=== PATIENT | female | born 1930 | race Caucasian/White ===

== ENCOUNTER 2017-03-17 11:29 | Observation (INO) | payer OTHER ==
[~2017-03-17] VITALS: Ht 154.9 cm; Wt 67.3 kg
[2017-03-17 00:05] VITALS: PULSE 57
[~2017-03-17 11:29] MED LIST: AMLO5TAB2 PO; ASPI-516 CHEW; FISHCAP4 PO; GING500C2; GLUC500C5 PO; LOSA25TA PO; METO1TAB42 PO; NEXI20CA PO; OXYB5TAB8 PO; SIME180C; TURM500C3 PO
[2017-03-17 14:23] VITALS: BP 142/65; PULSE 60; RESP 18; TEMP 98; O2SAT 97
[2017-03-17] MEDS ORDERED: ACETAMINOPHEN 500 MG CPLT PO PRN (15:45)
[2017-03-17] MEDS ORDERED: SODIUM CHLORIDE 0.9% FLUSH 5 ML FLUSH IVF PRN (15:45)
[2017-03-17] MEDS ORDERED: RESP: ALBUTEROL 2.5 MG/IPRATROPIUM 0.5 MG NEB (PRN) INH (15:45)
[2017-03-17] MEDS ORDERED: ACETAMINOPHEN/HYDROcodone 325 MG/7.5 MG TAB PO PRN (15:45)
[2017-03-17] MEDS ORDERED: cloNIDine HCL 0.1 MG TAB PO PRN (15:45)
[2017-03-17] MEDS ORDERED: ONDANSETRON HCL 4 MG/2 ML VIAL IV PUSH PRN (15:45)
--- NOTE | 2017-03-17 15:54 | HHI.HP ---
[facility] Primary Care Physician Jim Hawkins MD Chief Complaint Chest pain History of Present Illness This is an 86-year-old female that presents to the ED in [place] for evaluation of chest discomfort and with subsequently transported to chest pain center to further evaluate her chest discomfort which she described as a warmth sensation. She states that she is awoken early this morning and did not feel right. She states that she felt weird. She checked her blood pressure found to be in the 170s. She states that this is unusual for her. She takes 3 medications for hypertension and states that her blood pressures usually fine. She also states that she developed a discomfort across her chest about the same time with shortness of breath. She then states she has been short of breath for quite some time. This can occur also which is slightly walking. She saw a air conditioner installer helper in the land and had a stress test and 2-D echo 3 weeks ago but she does not know the results results. Review of Systems General: Patient denies fevers, chills recent, and recent travel HEENT: Patient denies headache, sore throat, difficulty swallowing. Cardiovascular: Has the chest discomfort as mentioned above. Denies sensation of heart beating rapidly or irregularly. No syncope. Denies diaphoresis. Respiratory: She has been short of breath. Denies inspirational chest discomfort. Denies coughing wheezing or hemoptysis. GI: Patient denies nausea, vomiting, diarrhea, abdominal pain, bloody stools. Musculoskeletal: Patient denies joint pain or edema. Denies calf pain or edema. Neurovascular: Patient denies numbness, tingling, weakness in extremities. Denies headache. Endocrine: Denies polyuria and polydipsia. Hematologic: Denies easy bruising. Skin: Denies rash or itching. Past Family Social History Allergies: Coded Allergies: No Known Allergies (Unverified Adverse Reaction, Unknown, 03/17/17) Past Medical History Hypertension, hyperlipidemia, GERD, left renal artery stent a few years ago. Denies diabetes and known CAD. Past Surgical History Left renal stent. Hysterectomy. Reported Medications Reported Meds & Active Scripts Active Reported Turmeric (Turmeric (Curcuma Longa)) 450 Mg-50 Mg Cap 1 Tab PO BID Glucosamine (Glucosamine Sulfate) 500 Mg Cap 500 Mg PO BID Gas Relief (Simethicone) 180 Mg Cap Nexium (Esomeprazole DR) 20 Mg Capdr 20 Mg PO DAILY Fish Oil + D3 (Fish Oil-Cholecalciferol) 1,200-1,000 Mg-Unit Cap 1 Cap PO DAILY Aspirin 81 Mg Chew 81 Mg CHEW DAILY Ditropan (Oxybutynin Chloride) 5 Mg Tab 5 Mg PO Q12HR Losartan (Losartan Potassium) 25 Mg Tab 12.5 Mg PO DAILY Amlodipine (Amlodipine Besylate) 5 Mg Tab 5 Mg PO DAILY Metoprolol Succinate ER 24 HR (Metoprolol Succinate) 25 Mg Tab 25 Mg PO DAILY Family History Denies family history of CAD. Social History Nonsmoker. Denies alcohol or illicit drugs. Physical Exam Vital Signs Vital Signs Date Time Temp Pulse Resp B/P (MAP) Pulse Ox O2 Delivery O2 Flow Rate FiO2 03/17/17 14:23 98.0 60 18 142/65 (90) 97 Physical Exam GENERAL: This is a well-nourished, well-developed patient, in no apparent distress. Patient speaks in clear complete sentences. Patient is pleasant. HEENT: Head is atraumatic and normocephalic. Neck is supple without lymphadenopathy and trachea is midline. No JVD or carotid bruits. CARDIOVASCULAR: Grade 3 systolic murmur left sternal border likely mitral regurgitation and a grade 2 diastolic murmur along the sternum likely representing aortic regurgitation. Regular rate and rhythm without gallops, or rubs. RESPIRATORY: Clear to auscultation. Breath sounds equal bilaterally. No wheezes , rales, or rhonchi. Chest wall is nontender. No use of accessory muscles. GASTROINTESTINAL: Abdomen is nontender, nondistended. Abdomen soft. No obvious pulsatile mass or bruit. No CVA tenderness. Strong femoral pulses bilaterally. Normal bowel sounds in all quadrants. MUSCULOSKELETAL: Patient is moving upper and lower extremities freely. No calf tenderness or edema, no Homans sign. Strong pulses in upper and lower extremities. NEUROLOGICAL: Patient is alert and oriented. Cranial nerves 2-12 are grossly intact. No focal deficits and speech is clear. SKIN: No rash and turgor is normal. Imaging Chest x-ray read by radiologist as cardiomegaly. No acute findings. Course EKG is a sinus rhythm sinus bradycardia without significant ST segment depressions or elevations. There are PACs present. Caprini VTE Risk Assessment Caprini VTE Risk Assessment: Mod/High Risk (score >= 2) Caprini Risk Assessment Model Point Value = 1 Point Value = 2 Point Value = 3 Point Value = 5 Age 41-60 Minor surgery BMI > 25 kg/m2 Swollen legs Varicose veins or History of unexplained or recurrent spontaneous Oral contraceptives or hormone replacement Sepsis (< 1 month) Serious lung disease, including pneumonia (< 1 month) Abnormal pulmonary function Acute myocardial infarction Congestive heart failure (< 1 month) History of inflammatory bowel disease Medical patient at bed rest Age 61-74 Arthroscopic surgery Major open surgery (> 45 min) Laparoscopic surgery (> 45 min) Malignancy Confined to bed (> 72 hours) Immobilizing plaster cast Central venous access Age >= 75 History of VTE Family history of VTE Factor V Leiden Prothrombin [id number] Lupus anticoagulant Anticardiolipin antibodies Elevated serum homocysteine Heparin-induced thrombocytopenia Other congenital or acquired thrombophilia Stroke (< 1 month) Elective arthroplasty Hip, pelvis, or leg fracture Acute spinal cord injury (< 1 month) Prophylaxis Regimen Total Risk Factor Score Risk Level Prophylaxis Regimen 0-1 Low Early ambulation 2 Moderate Order ONE of the following: *Sequential Compression Device (SCD) *Heparin 5000 units SQ BID 3-4 Higher Order ONE of the following medications: *Heparin 5000 units SQ TID *Enoxaparin/Lovenox 40 mg SQ daily (WT < 150 kg, CrCl > 30 mL/min) *Enoxaparin/Lovenox 30 mg SQ daily (WT < 150 kg, CrCl > 10-29 mL/min) *Enoxaparin/Lovenox 30 mg SQ BID (WT < 150 kg, CrCl > 30 mL/min) AND/OR *Sequential Compression Device (SCD) 5 or more Highest Order ONE of the following medications: *Heparin 5000 units SQ TID (Preferred with Epidurals) *Enoxaparin/Lovenox 40 mg SQ daily (WT < 150 kg, CrCl > 30 mL/min) *Enoxaparin/Lovenox 30 mg SQ daily (WT < 150 kg, CrCl > 10-29 mL/min) *Enoxaparin/Lovenox 30 mg SQ BID (WT < 150 kg, CrCl > 30 mL/min) AND *Sequential Compression Device (SCD) Assessment and Plan Assessment and Plan * Chest pain: Patient's symptoms are atypical. She will continue to have serial cardiac enzymes and EKGs for ruling out purposes. She was seen by Dr. Salinas of cardiology in the chest pain center. Patient states she recently had a stress test and 2-D echo and is awaiting the results from her air conditioner installer helper. Patient will spend the evening in the chest pain center and likely be discharged in the morning if she rules out and is feeling okay with instructions to follow-up with her air conditioner installer helper and return to ED for interval issues. * Hypertension: Patient will continue medications. Will continue to monitor. * Hyperlipidemia: Continue current medication. * GERD: Continue current medication. Patient is stable at this time. She is agreeable to this plan. Valente Enriquez Mar 17, 2017 15:54
[2017-03-17 16:43] LABS: CREATINE KINASE 106 U/L (26-192)
[2017-03-17 16:56] LABS: CKMB 1.7 NG/ML (0.5-3.6)
[2017-03-17] MEDS: PANTOPRAZOLE SOD 20 MG DELAYED RELEASE TAB PO SCH (18:08)
[2017-03-17 20:12] VITALS: O2SAT 96
[2017-03-17 20:53] VITALS: BP 127/58; PULSE 60; RESP 18; TEMP 98.4; O2SAT 93
[2017-03-17] MEDS: SODIUM CHLORIDE 0.9% FLUSH 5 ML FLUSH IVF SCH (21:00)
[2017-03-17] MEDS ORDERED: TURMERIC PO SCH (21:00)
[2017-03-17] MEDS ORDERED: NON-FORMULARY DRUG (Glucosamine 500 MG) PO SCH (21:00)
[2017-03-17] MEDS: OXYBUTYNIN CHLORIDE 5 MG TAB PO SCH (21:10)
[2017-03-17 23:55] VITALS: PULSE 50
[2017-03-17 23:59] VITALS: BP 147/75; PULSE 78; RESP 18; TEMP 98.8; O2SAT 97
[2017-03-18 03:56] VITALS: BP 120/64; PULSE 58; RESP 18; TEMP 98.1; O2SAT 97
--- NOTE | 2017-03-18 07:56 | HHI.DCPOC ---
Discharge Care Plan Diagnosis: (1) Chest pain (2) Hypertension Goals to Promote Your Health * To prevent worsening of your condition and complications * To maintain your health at the optimal level Directions to Meet Your Goals Take your medications as prescribed Follow your dietary instruction Follow activity as directed Keep your appointments as scheduled Take your immunizations and boosters as scheduled If your symptoms worsen call your PCP, if no PCP go to Urgent Care Center or Emergency Room Smoking is Dangerous to Your Health. Avoid second hand smoke Call the 24-hour hour crisis hotline for domestic abuse at Valente Enriquez Mar 18, 2017 07:56
[2017-03-18 08:00] VITALS: BP 159/67; PULSE 56; RESP 18; TEMP 97.5; O2SAT 93
[2017-03-18 08:29] VITALS: PULSE 71
[2017-03-18 08:53] VITALS: O2SAT 93
[2017-03-18] MEDS ORDERED: ASPIRIN 325 MG TAB PO SCH (09:00)
[2017-03-18] MEDS ORDERED: METOPROLOL SUCCINATE 25 MG EXTENDED RELEASE TAB PO SCH (09:00)
[2017-03-18] MEDS: SODIUM CHLORIDE 0.9% FLUSH 5 ML FLUSH IVF SCH (09:00)
[2017-03-18] MEDS ORDERED: LOSARTAN 25 MG TAB PO SCH (09:00)
[2017-03-18] MEDS ORDERED: amLODIPine BESYLATE 5 MG TAB PO SCH (09:00)
[2017-03-18] MEDS: OXYBUTYNIN CHLORIDE 5 MG TAB PO SCH (09:27)
[2017-03-18] MEDS: PANTOPRAZOLE SOD 20 MG DELAYED RELEASE TAB PO SCH (09:27)
--- NOTE | 2017-03-18 11:09 | EKG ---
Date Performed: 03/17/2017 Time Performed: 18:20:32 PTAGE: 86 years EKG: SINUS BRADYCARDIA WITH OCCASIONAL SUPRAVENTRICULAR PREMATURE COMPLEXES BORDERLINE ECG NO PREVIOUS TRACING DOCTOR: Josue Salinas Interpretating Date/Time 03/18/2017 11:07:01
== END 2017-03-18 11:52 | disposition home or self-care (01) ==
LOC: NEDDLT 14:00 → NEPHCDU 14:16
DX: R07.89 Other chest pain (principal); R06.02 Shortness of breath; R00.1 Bradycardia, unspecified; I10 Essential (primary) hypertension; E78.5 Hyperlipidemia, unspecified; K21.9 Gastro-esophageal reflux disease without esophagitis; Z79.899 Other long term (current) drug therapy
CPT/HCPCS: 71010; 80053; 82550; 82552; 84484; 85025; 85610; 85730; 93005; 99285; G0378; 99281

== ENCOUNTER 2018-04-26 04:21 | Observation (INO) ==
[2018-04-26] MEDS ORDERED: Heparin 10,000 UNITS/10 ML Vial (for IV use) IV.PUSH STA (10:11)
[2018-04-26] MEDS ORDERED: Heparin Drip 25,000 UNIT/250 ML BAG IV.CONT PRN (10:11)
--- NOTE | 2018-04-26 11:07 | P.HP ---
History of Present Illness Primary Care Physician: Jim Hawkins History of Present Illness: 87-year-old white female being admitted for A. fib with RVR. Patient was in her usual state of health until sometime yesterday late morning she had some self-limited nausea vomiting and diarrhea. Later that night around 3 AM she woke up with a sense of palpitations, with a sensation of something beating out of her chest. Denies having any nausea, vomiting, chest pain or shortness of breath associated with the episode. She says she measured her blood pressure at home, does not remember the numbers but says it was "high. " She took 2 doses of baby aspirin, and with no relief of symptoms she decided to proceed to the emergency department and [place]. In the ED she was found to be in A. fib with RVR and was about to be started on Cardizem drip but her pulse had spontaneously come down to around 93. Blood work initially showed a negative troponin with mild hypokalemia at 3.1 chest x- ray was obtained which I independently reviewed which was negative for any acute findings. EKG per my independent review shows A. fib with RVR and then the repeat EKG shows sinus rhythm with some PACs. Troponin trended up to 0.09 on repeat. BNP minimally up at 243. Pt says she sees Dr. Benjamin from cardiology. Review of Systems All other systems reviewed negative except as stated in HPI PMFSH - History History Provided By: Patient - Medical History Medical History: Medical History (Last Updated 04/26/18 @ 11:03 by Cain Hoyos MD) History of stent insertion of renal artery (Acute) Afib Aneurysm Arthritis GERD (gastroesophageal reflux disease) HTN (hypertension) Thyroid disease - Family History Family History: Family History (Last Updated 04/26/18 @ 11:03 by Cain Hoyos MD) Other Heart disease - Tobacco History Second Hand Smoke Exposure: Yes Tobacco Use In Past 30 Days: No Smoking Status: Former smoker Tobacco Type: Cigarettes - Alcohol History How Often Do You Have a Drink Containing Alcohol: Never - Substance Use History Substance History: No History of Abuse - Travel History Recent Travel in the [place] Within the Last 8 Weeks: No Recent Travel Out of the Country Within the Last 8 Weeks: No Medications and Allergies Active Medications: Active Medications Heparin Sodium/Dextrose (Heparin/D5w 25,000 U/250 Ml) 25,000 unit in 250 mls @ 8.437 mls/hr IV.CONT TITRATE PRN; Protocol PRN Reason: Per Protocol Sodium Chloride (Ns Flush) 2 ml IV.FLUSH BID LIGIA Last Admin: 04/26/18 09:51 Dose: 2 ml Sodium Chloride (Ns Flush) 2 ml IV.FLUSH UNSCH PRN PRN Reason: FLUSH AFTER USING IV ACCESS Allergies Allergy/AdvReac Type Severity Reaction Status Date / Time No Known Allergies Allergy Verified 04/26/18 04:30 Home Medications Medication Instructions Recorded Confirmed Type albuterol sulfate [Ventolin HFA] 1 puff INHALATION Q4-6H PRN 04/26/18 04/26/18 History amlodipine 5 mg PO DAILY 04/26/18 04/26/18 History aspirin 81 mg PO DAILY 04/26/18 04/26/18 History atorvastatin 10 mg PO QPM 04/26/18 04/26/18 History cyanocobalamin-cobamamide [B12] 1,000 mg DAILY 04/26/18 04/26/18 History glucosamine sulfate [Glucosamine] 500 mg PO BID 04/26/18 04/26/18 History losartan 25 mg PO DAILY 04/26/18 04/26/18 History metoprolol succinate 25 mg PO DAILY 04/26/18 04/26/18 History omega 5-[id number]-[id number]-fish oil [Fish Oil] 1,000 mg PO DAILY 04/26/18 04/26/18 History oxybutynin chloride 5 mg PO TID 04/26/18 04/26/18 History pantoprazole 40 mg PO DAILY 04/26/18 04/26/18 History Exam Vital signs: Intake & Output 04/25/18 04/26/18 04/26/18 18:59 06:59 18:59 Weight 70.307 kg Other: Weight On Admission 70.307 kg Narrative: VS: afebrile GENERAL: Elderly well-nourished female, awake, no acute distress SKIN: Warm and dry. EYES: No scleral icterus. No injection or drainage. ENT: No nasal bleeding or discharge. Mucous membranes pink and moist. CARDIOVASCULAR: Heart sounds are regular rate and rhythm, no murmurs RESPIRATORY: No accessory muscle use. Clear to auscultation. Breath sounds equal bilaterally. GASTROINTESTINAL: Abdomen soft, non-tender, nondistended. Extremities: No clubbing, cyanosis, or edema. No obvious deformities. MUSCULOSKELETAL: adequate muscle bulk and tone for age and habitus NEUROLOGICAL: Awake and alert. No obvious cranial nerve deficits. No facial droop nor slurred speech noted. PSYCHIATRIC: Appropriate mood and affect; insight and judgment normal. Caprini VTE Risk Assessment Caprini VTE Risk Assessment: Moderate/High Risk (score >= 2) Caprini Risk Assessment Model: Point Value = 1 Point Value = 2 Point Value = 3 Point Value = 5 Age 41-60 Minor surgery BMI > 25 kg/m2 Swollen legs Varicose veins or History of unexplained or recurrent spontaneous Oral contraceptives or hormone replacement Sepsis (< 1 month) Serious lung disease, including pneumonia (< 1 month) Abnormal pulmonary function Acute myocardial infarction Congestive heart failure (< 1 month) History of inflammatory bowel disease Medical patient at bed rest Age 61-74 Arthroscopic surgery Major open surgery (> 45 min) Laparoscopic surgery (> 45 min) Malignancy Confined to bed (> 72 hours) Immobilizing plaster cast Central venous access Age >= 75 History of VTE Family history of VTE Factor V Leiden Prothrombin [id number] Lupus anticoagulant Anticardiolipin antibodies Elevated serum homocysteine Heparin-induced thrombocytopenia Other congenital or acquired thrombophilia Stroke (< 1 month) Elective arthroplasty Hip, pelvis, or leg fracture Acute spinal cord injury (< 1 month) Prophylaxis Regimen: Total Risk Factor Score Risk Level Prophylaxis Regimen 0-1 Low Early ambulation 2 Moderate Order ONE of the following: *Sequential Compression Device (SCD) *Heparin 5000 units SQ BID 3-4 Higher Order ONE of the following medications: *Heparin 5000 units SQ TID *Enoxaparin/Lovenox 40 mg SQ daily (WT < 150 kg, CrCl > 30 mL/min) *Enoxaparin/Lovenox 30 mg SQ daily (WT < 150 kg, CrCl > 10-29 mL/min) *Enoxaparin/Lovenox 30 mg SQ BID (WT < 150 kg, CrCl > 30 mL/min) AND/OR *Sequential Compression Device (SCD) 5 or more Highest Order ONE of the following medications: *Heparin 5000 units SQ TID (Preferred with Epidurals) *Enoxaparin/Lovenox 40 mg SQ daily (WT < 150 kg, CrCl > 30 mL/min) *Enoxaparin/Lovenox 30 mg SQ daily (WT < 150 kg, CrCl > 10-29 mL/min) *Enoxaparin/Lovenox 30 mg SQ BID (WT < 150 kg, CrCl > 30 mL/min) AND *Sequential Compression Device (SCD) Assessment and Plan - Plan 87-year-old white female being admitted for A. fib with RVR A. fib with RVR Now in sinus rhythm -Continue home metoprolol for now -We will need anticoagulation given elevated CHADSVASC. -no need for diltiazem drip at this time Mild elevated troponin - likely secondary to A. fib with RVR, no clinical signs of ACS -Called patient's scribing machine operator, given her risk factors recommended having cardiology see the patient - aspirin, lipitor mild hypokalemia -replaced, check Mg Hx of thoracic aortic aneurysm - being managed conservatively by CTS (Dr. Mitchell) heparin subq for now until cardiology determines need for ischemic workup, otherwise pt needs NOAC upon discharge
[2018-04-26] MEDS ORDERED: Non-Formulary Drug (Glucosamine Sulfate [Glucosamine] 500 MG) PO SCH (11:15)
[2018-04-26] MEDS: Sod Chloride 0.9% Inj 1,000 ML IV.CONT SCH (13:31)
[2018-04-26] MEDS: Heparin - SQ 10,000 UNITS/ML Vial SQ SCH ×2 (13:34→21:19)
--- NOTE | 2018-04-27 03:46 | MB ---
cc: James Guillaume DO DATE: 04/26/2018 REASON FOR CONSULTATION: Atrial fibrillation with rapid ventricular response, elevated troponin. HISTORY OF PRESENT ILLNESS: Anitha Driver is a pleasant 87-year-old female who sees my partner, Dr. Oziel Gramajo, in the office and presented to [facility] due to palpitations. She was in her usual state of health until the day before admission when she started having nausea, vomiting, and diarrhea. Apparently, her grandchild is sick with a similar type illness. She went to bed and later that night, around 3 a.m., she woke up with her heart beating irregular in her chest. She has had no other previous episodes of palpitations like this in the past. She denies chest pain or shortness of breath. She took her blood pressure and remembers it was high, but is unsure of the numbers. She took 2 baby aspirins with no relief of symptoms and so she came to the emergency room in [place]. In the emergency room, she was found to have atrial fibrillation with rapid ventricular response and started on a Cardizem drip. During her workup, she was found to have a troponin of 0.17 and I was asked to see her due to the atrial fibrillation as well as the elevated troponin. PAST MEDICAL HISTORY: 1. Thoracic aortic aneurysm being treated conservatively due to comorbidities. 2. Coronary artery disease. 3. Gastroesophageal reflux disease. 4. Hypertension. 5. Hyperlipidemia. 6. Renal artery stenosis. 7. History of TIA. PAST SURGICAL HISTORY: 1. Bilateral cataract extraction. 2. Previous PCI of unknown coronary. 3. Stripping of varicose great saphenous vein. 4. 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 ALLERGIES: NO KNOWN DRUG ALLERGIES. MEDICATIONS: 1. Aspirin 81 mg daily. 2. Toprol-XL 25 mg daily. 3. Losartan 25 mg daily. 4. Albuterol every 4-6 hours as needed. 5. Fish oil 1000 mg daily. 6. Lipitor 10 mg every night. 7. Protonix 40 mg daily. 8. Oxybutynin 5 mg t.i.d. 9. Norvasc 5 mg daily. FAMILY HISTORY: Denies sudden cardiac within the family. SOCIAL HISTORY: The patient is a former smoker. Denies tobacco or alcohol abuse. REVIEW OF SYSTEMS: Fourteen systems were reviewed including osteopathic. Pertinent positives and negatives above, otherwise negative. PHYSICAL EXAMINATION: VITAL SIGNS: Temperature 97.8, heart rate 85, blood pressure 143/67, respirations 16, pulse oximetry 94% on room air. GENERAL: The patient appears well, in no acute distress. Alert, awake and oriented x 3. HEENT: Extraocular muscles intact. Mucous membranes moist. NECK: Supple. No JVD at 45 degrees. No carotid bruits heard bilaterally. Carotid upstroke is brisk in nature. HEART: Irregularly irregular. Positive first and second heart sounds with no noted murmurs, gallops or rubs. LUNGS: Clear to auscultation bilaterally. No wheezes, rales or rhonchi. ABDOMEN: Soft, nontender, and nondistended. No organomegaly noted. EXTREMITIES: Show no clubbing, cyanosis or edema. Femoral and distal pulses intact bilaterally. NEUROLOGIC: No focal deficits. SKIN: Warm, dry and intact. OSTEOPATHIC: No kyphoscoliosis, lordosis or paraspinal tender points. LABORATORY DATA: Hemoglobin 14.2, hematocrit 43.0, platelets 410. Potassium 3.1, BUN 19, creatinine 1.1. Troponin 0.17. IMPRESSION: 1. New onset atrial fibrillation with rapid ventricular response, currently now in sinus rhythm. 2. Minimally elevated troponin. 3. History of thoracic aortic aneurysm, currently being treated conservatively. RECOMMENDATIONS: 1. Ms. Driver presented with new onset atrial fibrillation with rapid ventricular response, most likely due to her dehydration from diarrhea and emesis. 2. She most likely has a gastroenteritis as her grandchild has a similar type illness. 3. She is currently in sinus rhythm and we will keep her on her Toprol-XL to control her heart rates. 4. She currently has a CHADS-VASc score of 3, although there is a questionable history of TIA in the past, which would put her at a 5. Ultimately, she will need anticoagulation before discharge. 5. She does have a minimally elevated troponin and this is most likely due to dehydration as well as her atrial fibrillation with rapid ventricular response. She does have a history of coronary artery disease and because of this, I will recommend a stress test in the morning. 6. We will check a 2-D echo to look at her overall left ventricular function, cardiac structure and possible valvulopathies. 7. If stress test is negative, then she will be placed on an anticoagulant, most likely Eliquis or Xarelto, and plan for discharge for follow up with Dr. Oziel Gramajo. If stress test is positive, then she will require a cardiac catheterization. Thank you for allowing me to see Anitha Driver. If there are any questions, please do not hesitate to call. DO YAEL Trent/luz maria , 03:11 AM , 03:24 AM
[2018-04-27] MEDS: Heparin - SQ 10,000 UNITS/ML Vial SQ SCH ×2 (05:22→13:51)
--- NOTE | 2018-04-27 07:56 | P.PN ---
Subjective Interval history: Follow-up for A. fib with RVR, elevated troponins. The patient reports feeling much better today. She denies any further palpitations. Denies ever having any chest pain or shortness of breath. She is going for nuclear stress test today. She has no other medical complaints at this time including no headache, lightheadedness, dizziness, or abdominal complaints. Physical Exam Vital signs: Vital Signs 04/26/18 11:10 04/26/18 14:30 04/26/18 20:00 Temperature 97.8 F 98.3 F Pulse Rate 85 58 L 56 L Respiratory Rate 16 18 Blood Pressure 143/67 H 138/60 Pulse Oximetry 94 L 94 L 04/26/18 23:31 04/27/18 00:00 04/27/18 04:00 Temperature 98.0 F 98.7 F Pulse Rate 61 68 51 L Respiratory Rate 18 18 Blood Pressure 109/54 L 119/56 L Pulse Oximetry 93 L 93 L Intake & Output 04/26/18 04/27/18 04/27/18 18:59 06:59 18:59 Weight 70.307 kg Other: # Voids 1 Date of Last Bowel Movement 04/26/18 Weight On Admission 70.307 kg Narrative: GENERAL: Well-nourished, well-developed pleasant elderly female patient in [facility]. SKIN: Warm and dry. No rash. HEENT: Normocephalic. Atraumatic. Pupils equal and round. Mucous membranes pink and moist. CARDIOVASCULAR: Regular rate and rhythm. No murmur appreciated. RESPIRATORY: No accessory muscle use. Clear to auscultation. Breath sounds equal bilaterally. GASTROINTESTINAL: Abdomen soft, non-tender, nondistended. Normoactive bowel sounds x4. MUSCULOSKELETAL: No obvious deformities. Extremities without clubbing, cyanosis , or edema. NEUROLOGICAL: Awake and alert. No obvious cranial nerve deficits. Moving all extremities spontaneously. Normal speech. PSYCHIATRIC: Appropriate mood and affect; insight and judgment normal. Results - Labs Laboratory Results - last 24 hr 04/26/18 04/26/18 04/26/18 12:00 12:00 12:00 PT Cancelled INR Cancelled APTT Cancelled Magnesium 2.4 Troponin I 0.17 H Assessment and Plan - Plan 87-year-old female with history of A. fib, HTN, renal artery stent, arthritis, presents with palpitations, found to be in A. fib with RVR in the [facility] ED. Atrial fibrillation with RVR: Acute, presented to [facility] ER in A. fib with ventricular rate of 136 bpm, converted back to NSR spontaneously while in the ER prior to receiving IV Cardizem. -Patient remains in NSR with controlled rate -Monitor on telemetry -Continue home metoprolol -[id number] score at least a 3, possibly 5 with questionable history of stroke, anticoagulation recommended -Cardiology consulted, recommended Lexiscan/echo, and if negative, start on Eliquis Elevated Troponins: suspect secondary to afib with RVR, however rule out ACS -troponins trended 0.09, 0.17 -continue aspirin, statin, BB -Cardiology consulted, appreciate recommendations -Nuclear stress test ordered Hypertension/Hyperlipidemia: Chronic -continue home meds including norvasc, metoprolol, losartan, statin -monitor BP, adjust antihypertensives as needed All other chronic medical conditions stable, continue home medications as appropriate. DVT Prophylaxis: Heparin sq for now Discharge Planning: Await lexiscan and echocardiogram. 1700hrs: Echo with EF 65-70%, however moderately dilated proximal ascending aorta. Nuclear stress test mostly unremarkable per Dr. Guillaume, no further intervention planned. Discussed with Dr. Guillaume, cleared for discharge, recommended to start Eliquis 5mg bid, increase losartan to 50mg daily for better BP control, repeat BMP as outpatient in 1 week, and f/up as outpatient with cardiology. Discharge patient to home Condition on discharge: Stable Cardiac Diet as tolerated Ad Leona activity Rx written: Eliquis 5mg po bid, losartan 50mg po daily Follow-up with primary care physician and table hand Repeat BMP in 1 week
[2018-04-27] MEDS ORDERED: Aspirin 325 MG Tablet PO SCH (09:00)
[2018-04-27] MEDS ORDERED: Regadenoson Inj 0.4 MG/5 ML Syringe IV.PUSH ONE (12:12)
[2018-04-27] MEDS ORDERED: amLODIPine 5 MG Tablet PO SCH (13:00)
--- NOTE | 2018-04-27 13:42 | NM ---
EXAM DATE: 04/27/2018 1:27 PM EST AGE/SEX: 87 years / Female INDICATIONS:Atrial Fibrillation. Abnormal EKG CLINICAL DATA: This is the patient's initial encounter. Patient reports that signs and symptoms have been present for 1 day and indicates a pain score of 3/10. MEDICAL/SURGICAL HISTORY: Hypertension. Gastroesophageal reflux disease. Thyroid disease. . R enal stent placed. COMPARISON: No prior exams available for comparison. DOSE: 8.2 mCi Tc 99m Myoview at rest 26.4 mCi [id number] at stress 0.4 mg Lexiscan STRESS SYMPTOMS: None. EJECTION FRACTION: 47 % TECHNIQUE: The patient underwent pharmacologic stress with infusion of prescribed dose. Continuous ECG tracing was monitored during stress. Gated SPECT imaging was performed after stress and conventi onal SPECT imaging was performed at rest. The examination was performed on a SPECT/CT scanner, both attenuation and non-corrected datasets were reviewed. FINDINGS: Distribution: The maximum perfused segment at stress is in the distal wall. Perfusion Study: There is minimal decreased activity at the apical inferior wall on the stress imag es compared to the rest images. The difference is in the order of 20% which is borderline for mild is chemia. Gated Study: There are intact wall motion and wall thickening without hypokinetic or dyskinetic segm ents. The ejection fraction is calculated at 47%. The left ventricle appears dilated. RISK CATEGORY: Low (<1% Annual Motality Rate) CONCLUSION: 1. Possible small area of borderline ischemia at the apical portion of the inferior wall. 2. Left ventricular dilatation 3. Mild reduced ejection fraction of 47%. Electronically signed by: Cuate Lawson MD Board Certified Radiologist 04/27/2018 1:41 PM EST
--- NOTE | 2018-04-27 17:31 | ECHRPT ---
Indication: ATRIAL FIB/FLUTTER CONCLUSIONS The left ventricular systolic function is hyperdynamic with an estimated ejection fraction in the ra nge of 65- 70%. Moderately dilated proximal ascending aorta (4.5cm). Posterior mitral leaflet tanya without prolapse. Mild mitral valve regurgitation. Moderate aortic valve regurgitation. There is mild tricuspid valve regurgitation. There is estimated moderate pulmonary hypertension present (range 50-60 mmHg). BP: / HR: Rhythm: Sinus MEASUREMENTS (Male / Female) Normal Values Technical Quality:Fair 2D ECHO LV Diastolic Diameter PLAX 5.0 cm 4.2 - 5.9 / 3.9 - 5.3 cm LV Systolic Diameter PLAX 3.0 cm IVS Diastolic Thickness 0.9 cm 0.6 - 1.0 / 0.6 - 0.9 cm LVPW Diastolic Thickness 0.9 cm 0.6 - 1.0 / 0.6 - 0.9 cm LV Relative Wall Thickness 0.4 RV Internal Dim ED PLAX 2.9 cm LVOT Diameter 2.1 cm Aortic Root Diameter 3.3 cm LA Systolic Diameter LX 3.3 cm 3.0 - 4.0 / 2.7 - 3.8 cm LA Volume Index 40.6 cm/m 16 - 28 cm/m M-MODE AV Cusp Separation MM 1.9 cm DOPPLER AV Peak Velocity 199.0 cm/s AV Peak Gradient 15.8 mmHg AV Mean Gradient 8.0 mmHg AV Velocity Time Integral 44.4 cm AI Peak Velocity 405.0 cm/s AI Peak Gradient 65.6 mmHg AI Pressure Half Time 489.0 ms LVOT Peak Velocity 111.0 cm/s LVOT Peak Gradient 4.9 mmHg LVOT Velocity Time Integral 23.6 cm AV Area Cont Eq vti 1.8 cm AV Area Cont Eq pk 1.9 cm Mitral E Point Velocity 102.0 cm/s Mitral A Point Velocity 116.0 cm/s Mitral E to A Ratio 0.9 TR Peak Velocity 328.0 cm/s TR Peak Gradient 43.0 mmHg Right Atrial Pressure 10.0 mmHg Pulmonary Artery Systolic Pressu 53.0 mmHg Right Ventricular Systolic Press 53.0 mmHg PV Peak Velocity 45.1 cm/s PV Peak Gradient 0.8 mmHg FINDINGS LEFT VENTRICLE Normal left ventricular size. Wall thickness is normal. The left ventricular systolic function is hyperdynamic with an estimated ejection fraction in the ra nge of 65- 70%. RIGHT VENTRICLE Normal right ventricular size and systolic function. LEFT ATRIUM The left atrial size is normal. RIGHT ATRIUM The right atrial size is normal. ATRIAL SEPTUM No atrial level shunt is demonstrated by color flow Doppler interrogation. AORTA Moderately dilated proximal ascending aorta (4.5cm). MITRAL VALVE Posterior mitral leaflet tanya without prolapse. No mitral valve stenosis. Mild mitral valve regurgitation. AORTIC VALVE Trileaflet aortic valve. Aortic valve sclerosis is present. Moderate aortic valve regurgitation. No aortic valve stenosis. TRICUSPID VALVE Structurally normal tricuspid valve. There is mild tricuspid valve regurgitation. The estimated pulmonary arterial pressure is 53 mmHg. There is estimated moderate pulmonary hypertension present (range 50-60 mmHg). PULMONARY VALVE Mild pulmonary valve regurgitation. VESSELS The inferior vena cava is normal in size. PERICARDIUM No pericardial effusion. James Guillaume DO (Electronically Signed) Final Date:27 April 2018 17:30
[2018-04-27] MEDS: Sod Chloride 0.9% Inj 1,000 ML IV.CONT SCH (17:45)
--- NOTE | 2018-04-28 00:27 | P.PNCA ---
Subjective Interval history: No events overnight Feels much better Medications and Allergies Allergies Allergy/AdvReac Type Severity Reaction Status Date / Time No Known Allergies Allergy Verified 04/26/18 04:30 Home Medications Medication Instructions Recorded Confirmed Type albuterol sulfate [Ventolin HFA] 1 puff INHALATION Q4-6H PRN 04/26/18 04/26/18 History amlodipine 5 mg PO DAILY 04/26/18 04/26/18 History aspirin 81 mg PO DAILY 04/26/18 04/26/18 History atorvastatin 10 mg PO QPM 04/26/18 04/26/18 History cyanocobalamin-cobamamide [B12] 1,000 mg DAILY 04/26/18 04/26/18 History glucosamine sulfate [Glucosamine] 500 mg PO BID 04/26/18 04/26/18 History metoprolol succinate 25 mg PO DAILY 04/26/18 04/26/18 History omega 2-[id number]-fish oil [Fish Oil] 1,000 mg PO DAILY 04/26/18 04/26/18 History oxybutynin chloride 5 mg PO TID 04/26/18 04/26/18 History pantoprazole 40 mg PO DAILY 04/26/18 04/26/18 History Physical Exam Vital signs: Vital Signs 04/27/18 04:00 04/27/18 08:00 04/27/18 08:02 Temperature 98.7 F 98.0 F Pulse Rate 51 L 60 66 Respiratory Rate 18 16 Blood Pressure 119/56 L 149/68 H Pulse Oximetry 93 L 93 L 04/27/18 11:35 04/27/18 12:05 04/27/18 16:15 Temperature 98.2 F Pulse Rate 50 L 56 L 67 Respiratory Rate 16 Blood Pressure 152/67 H Pulse Oximetry 96 Intake & Output 04/27/18 04/27/18 04/28/18 06:59 18:59 06:59 Intake Total 1000 / 1000 Balance 1000 / 1000 Intake: IV 1000 / 1000 NS Inj 1,000 ML @ 42 mls/hr IV. 1000 / 1000 CONT .[id number] [facility] Rx#:[id number] Other: # Voids 1 Date of Last Bowel Movement 04/26/18 Narrative: GENERAL: Well-nourished, well-developed pleasant elderly female patient in [facility]. SKIN: Warm and dry. No rash. HEENT: Normocephalic. Atraumatic. Pupils equal and round. Mucous membranes pink and moist. CARDIOVASCULAR: Regular rate and rhythm. 2/6 blowing murmur to the apex RESPIRATORY: No accessory muscle use. Clear to auscultation. Breath sounds equal bilaterally. GASTROINTESTINAL: Abdomen soft, non-tender, nondistended. Normoactive bowel sounds x4. MUSCULOSKELETAL: No obvious deformities. Extremities without clubbing, cyanosis , or edema. NEUROLOGICAL: Awake and alert. No obvious cranial nerve deficits. Moving all extremities spontaneously. Normal speech. PSYCHIATRIC: Appropriate mood and affect; insight and judgment normal. Results Cardiac Enzymes 04/26/18 Range/Units 12:00 Troponin I 0.17 H (0.02-0.05) ng/mL Coagulation 04/26/18 Range/Units 12:00 PT Cancelled APTT Cancelled Intake and Output 04/27/18 04/27/18 04/28/18 14:59 22:59 06:59 Intake Total 1000 / 1000 Balance 1000 / 1000 Intake: IV 1000 / 1000 NS Inj 1,000 ML @ 42 mls/hr IV. 1000 / 1000 CONT .[id number] [facility] Rx#:[id number] Other: # Voids 1 - Imaging and Cardiology Imaging: Impressions Myocardial Perfusion Scan Nuc Med 04/27/18 00:00 CONCLUSION: 1. Possible small area of borderline ischemia at the apical portion of the inferior wall. 2. Left ventricular dilatation 3. Mild reduced ejection fraction of 47%. Assessment and Plan - Assessment (1) Afib Code(s): I48.91 - Unspecified atrial fibrillation Status: Acute (2) Elevated troponin Code(s): R74.8 - Abnormal levels of other serum enzymes Status: Acute (3) Aortic regurgitation Code(s): I35.1 - Nonrheumatic aortic (valve) insufficiency Status: Acute (4) Thoracic aortic aneurysm Code(s): I71.2 - Thoracic aortic aneurysm, without rupture Status: Acute - Plan 1. New onset atrial fibrillation with rapid ventricular response Converted to normal sinus rhythm Most likely due to increased sympathetics due to gastroenteritis/dehydration Con't Toprol XL CHADSVASC = 3 (possible 5, as there is a questionable TIA in the past) Plan to start on Eliquis 5mg BID 2. Minimally elevated troponin. Most likely secondary to AFib with RVR Stress test read as possible borderline ischemia of a small area apically Reviewed the films, she has apical thinning a normal variant, and appears better in stress than in rest, no ischemia 3. History of thoracic aortic aneurysm Currently being treated conservatively 4. Gastroenteritis Most likely viral as her grandchild has the same symptoms 5. Echo EF 65-70% Moderately dilated proximal ascending aorta (4.5cm). Posterior mitral leaflet tanya without prolapse with mild mitral valve regurgitation. Moderate aortic valve regurgitation. There is mild tricuspid valve regurgitation. There is estimated moderate pulmonary hypertension present (range 50-60 mmHg) . 6. Cardiovascularly stable for discharge Will plan to start on Eliquis for Afib Con't Toprol for rate control, currently sinus rhythm Moderate aortic regurgitation, asymptomatic, EF normal with normal size LV, no further work up With her HTN, will plan to increase Losartan to 50mg daily and have her check a BMP in 1-2 weeks
--- NOTE | 2018-04-28 00:50 | ECG ---
Date Performed: 04/26/2018 Time Performed: 12:43:33 PTAGE: 87 years EKG: JUNCTIONAL RHYTHM ABNORMAL RHYTHM ECG Compared to PREVIOUS TRACING , no significant change (previous read as Afib, but appears to be junct ional) DOCTOR: James Guillaume Interpretating Date/Time 04/28/2018 00:50:02
--- NOTE | 2018-04-28 01:02 | ECG ---
Date Performed: 04/26/2018 Time Performed: 16:19:39 PTAGE: 87 years EKG: SINUS BRADYCARDIA READ PROLONGED QT INTERVAL, OVERMEASURED, APPEARS NORMAL ABNORMAL ECG Compared to PREVIOUS TRACING , previously junctional rhythm DOCTOR: James Guillaume Interpretating Date/Time 04/28/2018 01:01:19
== END 2018-04-27 20:50 | disposition home or self-care (01) ==
LOC: NEPHCDU 04:21 → NEDDLT 04:21
PROVIDERS: ADMIT Internal Medicine; ATTEND Internal Medicine